=== PATIENT | female | born 1990 | race African-American/Black ===

== ENCOUNTER 2017-11-06 16:42 | Emergency (ER) | payer OTHER ==
[~2017-11-06] VITALS: Ht 175.3 cm; Wt 81.7 kg
[~2017-11-06 16:42] MED LIST: DOXYCYCLINE HY100 MG PO; METRONIDAZOLE500 MG PO; NORCO 5-325 TA1 EACH PO; PRENATAL TABLE1 EAC1 PO; SERTRALINE HCL25 MG PO
[2017-11-06] MEDS ORDERED: FLAGYL500 MG PO (19:19)
== END 2017-11-06 19:31 | disposition home or self-care (01) ==
LOC: ED 16:42
DX: N76.0 Acute vaginitis (principal); F17.200 Nicotine dependence, unspecified, uncomplicated; Z79.899 Other long term (current) drug therapy
CPT/HCPCS: 81001; 84703; 87210; 96372; 99283; J0696

== ENCOUNTER 2018-01-12 01:39 | Emergency (ER) | payer OTHER ==
[~2018-01-12] VITALS: Ht 175.3 cm; Wt 81.7 kg
[~2018-01-12 01:39] MED LIST changes: +FLAGYL500 MG PO
[2018-01-12] MEDS ORDERED: FLAGYL500 MG PO (03:11)
== END 2018-01-12 03:51 | disposition home or self-care (01) ==
LOC: ED 01:39
DX: N76.0 Acute vaginitis (principal); B96.89 Other specified bacterial agents as the cause of diseases classified elsewhere; F17.200 Nicotine dependence, unspecified, uncomplicated
CPT/HCPCS: 87210; 87491; 87591; 99284

== ENCOUNTER 2018-02-10 19:16 | Emergency (ER) | payer OTHER ==
[~2018-02-10] VITALS: Ht 175.3 cm; Wt 78.5 kg
== END 2018-02-10 22:31 | disposition home or self-care (01) ==
LOC: ED 19:16
DX: O99.89 Other specified diseases and conditions complicating pregnancy, childbirth and the puerperium (principal); R10.32 Left lower quadrant pain; O99.331 Smoking (tobacco) complicating pregnancy, first trimester; F17.200 Nicotine dependence, unspecified, uncomplicated; Z79.899 Other long term (current) drug therapy
CPT/HCPCS: 80053; 81001; 84702; 84703; 85025; 99283

== ENCOUNTER 2018-04-06 15:04 | Emergency (ER) | payer OTHER ==
[~2018-04-06] VITALS: Ht 175.3 cm; Wt 77.1 kg
[2018-04-06] MEDS ORDERED: KEFLEX500 MG PO (16:13)
== END 2018-04-06 16:23 | disposition home or self-care (01) ==
LOC: ED 15:04
DX: N39.0 Urinary tract infection, site not specified (principal); F17.200 Nicotine dependence, unspecified, uncomplicated
CPT/HCPCS: 81001; 87077; 87088; 87186; 99283

== ENCOUNTER 2018-05-15 16:48 | Emergency (ER) | payer OTHER ==
[~2018-05-15] VITALS: Ht 175.3 cm; Wt 77.1 kg
[~2018-05-15 16:48] MED LIST changes: +KEFLEX500 MG PO
[2018-05-15] MEDS ORDERED: ZOLOFT100 MG PO (16:57)
== END 2018-05-15 17:01 | disposition home or self-care (01) ==
LOC: ED 16:48
DX: R35.0 Frequency of micturition (principal); R39.15 Urgency of urination

== ENCOUNTER 2018-05-26 05:56 | Emergency (ER) | payer OTHER ==
[~2018-05-26] VITALS: Ht 175.3 cm; Wt 77.1 kg
[~2018-05-26 05:56] MED LIST changes: +ZOLOFT100 MG PO
[2018-05-26] MEDS ORDERED: DOXYCYCLINE HY100 MG PO (07:05)
== END 2018-05-26 07:23 | disposition home or self-care (01) ==
LOC: ED 05:56
DX: N92.1 Excessive and frequent menstruation with irregular cycle (principal); F17.200 Nicotine dependence, unspecified, uncomplicated; Z79.899 Other long term (current) drug therapy
CPT/HCPCS: 81001; 84703; 99284

== ENCOUNTER 2023-02-03 08:21 | Inpatient (IN) | payer OTHER ==
[~2023-02-03] VITALS: Ht 175.3 cm; Wt 130.2 kg
--- NOTE | 2023-02-06 09:11 | NUR ---
02/06/23 0911 Nirali Wright 0901- PT ARRIVES TO [facility] ROOM #[id number]. PT REPORTS NO PAIN, NAUSEA, OR DIZZINESS. IV INFUSING WITH LR AND 20 UNITS OF PITOCIN TO THE LEFT HAND. PT SITTING UP SLIGHTLY IN BED. PT REPORTS NO DIZZINESS WITH THIS. RESP EVEN AND UNLABORED. OXYGEN SAT MID 90'S ON RA. PT'S SIGNIFICANT OTHER AT THE BEDSIDE WITH THE BABY. 0906- PT SITTING UP A LITTLE MORE IN BED. PT REPORTS NO DIZZINESS. 0908- PT PROVIDED HER GLASSES. 0911- [facility] RN AT THE BEDSIDE TO ASSIST WITH BREAST FEEDING.
--- NOTE | 2023-02-07 09:50 | PR ---
[facility] [address] [facility] [place], [place] [address] Signed PP Progress Notes Datetime Report Generated by CPErik: 02/07/2023 09:50 SUBJECTIVE: [id number] Pain: Within Normal Limits Nausea/Vomiting: Denies Vital Signs: [id number] Vital Signs: Reviewed; Within Normal Limits EXAM: Ongoing Cardiovascular: Normal Respiratory: Normal Abdomen/Uterus: Abnormal Lochia: Normal Vulva/Perineum: Not Done Breasts: Not Done CVA Tenderness: Not Done Extremities: Normal Incision: Normal Progress: Normal Exam Comments: Abdomen with active BS. Fundus firm, NT @ U-1. H/H 10.3/30.7, WBC 20.1, plat 279k IMPRESSION/PLAN/PROCEDURES: [id number] Impression: Normal Progression Other Plans: ambulate, shower Progress Notes: Doing well. Will increase activity with probable discharge tomorrow to boarder status. Signing Physician: Linette Wilson MD Copies: ~ *Electronically Signed* 02/07/23 0950 LINETTE WILSON MD PATIENT NAME: LIVVELVETRYAN AURORA PROGRESS NOTE DATE OF : 89 PHYSICIAN: LINETTE WILSON MD RPT #: [id number] REPORT IS CONFIDENTIAL AND NOT TO BE RELEASED WITHOUT AUTHORIZATION
--- NOTE | 2023-02-08 10:23 | PR ---
[facility] [address] [facility] [place], [place] [address] Signed PP Progress Notes Datetime Report Generated by CPErik: 02/08/2023 10:23 SUBJECTIVE: [id number] Pain: Within Normal Limits Nausea/Vomiting: Denies Flatus: Yes Vital Signs: [id number] Vital Signs: Reviewed; Within Normal Limits EXAM: Met Cardiovascular: Normal Respiratory: Normal Abdomen/Uterus: Abnormal Lochia: Normal Vulva/Perineum: Not Done Breasts: Not Done CVA Tenderness: Not Done Extremities: Abnormal Incision: Normal Progress: Normal Exam Comments: Abdomen with active BS. Fundus firm, NT @ U-1. Ext with 1+ edema, nontender IMPRESSION/PLAN/PROCEDURES: [id number] Impression: Normal Progression Plan: Discharge Other Plans: ambulate, shower Procedures: None Progress Notes: Doing well. I feel she is stable to be discharged to board status. Signing Physician: Chandler Wilson MD Copies: ~ *Electronically Signed* 02/08/23 1023 CHANDLER WILSON MD PATIENT NAME: CARINA CANTUA BARAK PROGRESS NOTE DATE OF : [birth year] PHYSICIAN: CHANDLER WILSON MD RPT #: [id number] REPORT IS CONFIDENTIAL AND NOT TO BE RELEASED WITHOUT AUTHORIZATION
--- NOTE | 2023-02-10 16:41 | PATH ---
[facility] [address] [facility] [place], [place] [address] Signed SPECIMEN(S): A PERITONEAL CAVITY FASCIAL MASS SPECIMEN SOURCE: A. PERITONEAL CAVITY FASCIAL MASS CLINICAL HISTORY: Mass. Repeat . FINAL PATHOLOGIC DIAGNOSIS: Peritoneal cavity fascial mass: - Taliaferro soft tissue and cyst with features consistent with endometriosis. JVR:ivana:[id number] MICROSCOPIC EXAMINATION: Histologic sections of all submitted blocks are examined by light microscopy. These findings, together with the gross examination, support the pathologic diagnosis. GROSS DESCRIPTION: The specimen, labeled and designated "Dunmeyer, peritoneal cavity fascial mass," is received in formalin and consists of portion of westfall, lobulated fatty tissue (2.2 x 1.8 x 1.4 cm) with attached ellipse of fibrous tissue (3.0 x 1.3 cm). The fibrous tissue is inked black and the remainder of the specimen is inked blue. The specimen is serially sectioned to reveal yellow-westfall, fatty to red-brown soft cut surfaces. The specimen is submitted entirely in cassette A1-A3. AC (under the direct supervision of a pathologist) The Gross Description was prepared using a voice recognition system. The report was reviewed for accuracy; however, sound-alike word errors, addition and/or deletions may occur. If there is any question about this report, please contact Client Services. PERFORMING LABORATORY: The technical component was performed by [facility], [address] [place] [id number] (CLIA# [id number]). Professional interpretation was performed by [facility], [address] [place] [id number] (CLIA#: [id number]). Diagnostician: Gal Herrmann MD Pathologist PATIENT NAME: RYAN CANTU PATHOLOGY DATE OF : 89 REPORT #: [id number] PHYSICIAN: [facility] PCP: AKANKSHA OCONNOR REPORT IS CONFIDENTIAL AND NOT TO BE RELEASED WITHOUT AUTHORIZATION [address] [address] Signed Electronically Signed 02/10/2023 Copies: ~ PATIENT NAME: RYAN CANTU [facility] DATE OF : [birth year] REPORT #: [id number] PHYSICIAN: [facility] PCP: AKANKSHA OCONNOR REPORT IS CONFIDENTIAL AND NOT TO BE RELEASED WITHOUT AUTHORIZATION
--- NOTE | 2023-02-13 21:54 | OR ---
[address] [address] Signed DATE OF OPERATION: 02/06/2023 SURGEON: Fabiola Wood DO PROCEDURES PERFORMED: 1. Repeat low transverse delivery. 2. Lysis of adhesions. 3. Excision of fascial mass. PREOPERATIVE DIAGNOSES: 1. Term . 2. History of prior . 3. Opioid dependency in remission, stable on buprenorphine. 4. Obesity POSTOPERATIVE DIAGNOSES: 1. Term . 2. History of prior . 3. Opioid dependency in remission, stable on buprenorphine. 4. Omental adhesions. 5. Fascial mass. 6. Obesity. ANESTHESIA: Spinal TAP block postoperatively. COMMISSARY HELPER: Heather Escobedo DO. ESTIMATED BLOOD LOSS: 500 mL. DRAINS: Lawrence to gravity. SPECIMENS: Fascial mass suspicious for scar endometriosis. FINDINGS: Electronically Signed By: FABIOLA WOOD DO (JD) 02/13/23 2154 PATIENT NAME: RYAN ZAIDI OPERATIVE REPORT DATE OF : [birth year] REPORT #: [id number] PHYSICIAN: FABIOLA WOOD DO (JD) PCP: AKANKSHA OCONNOR REPORT IS CONFIDENTIAL AND NOT TO BE RELEASED WITHOUT AUTHORIZATION [address] [address] Signed Delivery of viable male , 8 pounds 8 ounces with Apgars of 9 and 9 in the GABRIELLA position with no nuchal. Significant omental adhesions to the anterior abdominal wall that were lysed without difficulty. The edge of the fascial incision a chocolate appearing mass just right of midline suspicious for scar endometriosis. Otherwise normal uterus, tubes, and ovaries. COMPLICATIONS: None. INDICATION: Ms. Zaidi is a very pleasant, G5, P1 female at 39 weeks gestation, who presented to the [facility] for repeat low transverse delivery. complicated by obesity, history of prior , opioid dependency in remission, stable on buprenorphine and GBS positive. Repeat low transverse delivery was reviewed in detail and all questions were answered. Consents were signed. The patient wishes to proceed with the procedure. PROCEDURE IN DETAIL: The patient was taken to the operating room where a time-out was performed to confirm correct patient and correct procedure. Spinal anesthetic was adequately established and patient was prepped and draped in the supine position with a bump under the right hip. A Lawrence catheter was inserted. The patient received Ancef 3 g preoperatively and no heparin was indicated. Once spinal was found to be adequate, the patient was prepped and draped and a Pfannenstiel incision was made through her prior scar. Incision was carried down to the fascia which was nicked in the midline and fascial incision was extended bilaterally using curved Clemons scissors. The fascia was grasped with Kaeton's, elevated, and the underlying rectus muscles dissected off bluntly and sharply. The right inferior edge of the fascia demonstrated a mass most consistent with scar endometriosis. This was approximately 1 cm x 3 cm. This portion of the fascia was excised sharply and sent to pathology for further evaluation. Rectus muscle was then divided in the midline using blunt dissection and the peritoneum was noted to be densely adherent to the omentum. The peritoneum was found to be clear superior and this clear area was opened sharply and the omentum was then serially dissected off the anterior abdominal wall. The omentum was clamped, cut, and ligated with 2-0 chromic. Once omental adhesions were freed, no additional adhesions were noted. An Burke self retractor was placed. Lower uterine segment was identified and appeared normal. Hysterotomy was then performed using a surgical scalpel. Hysterotomy was extended bilaterally using blunt dissection. The amnion was ruptured without difficulty. Clear fluid was noted. The surgeon's hand was then placed in the uterine cavity and the vertex elevated into the abdomen and delivered with the assistance of fundal pressure. The was delivered without difficulty in the GABRIELLA position and again no nuchal cord was identified. The cord was doubly clamped and cut and the handed to Electronically Signed By: FABIOLA HECTOR) DO CARMEN 02/13/23 2154 PATIENT NAME: RYAN ZAIDI OPERATIVE REPORT DATE OF : [birth year] REPORT #: [id number] PHYSICIAN: FABIOLA WOOD) PCP: AKANKSHA OCONNOR REPORT IS CONFIDENTIAL AND NOT TO BE RELEASED WITHOUT AUTHORIZATION [address] [address] Signed waiting pediatric team for further care. Cord blood was obtained for routine analysis and the section of the cord was reserved for testing per pediatrics. The placenta was manually expressed, intact with a centrally inserted three-vessel cord. The uterine cavity which was cleared of any remaining products of conception or clot. A small amount of bleeding was noted from the left edge of the hysterotomy. The hysterotomy was then closed using 0 Monocryl in a running locked manner with excellent hemostasis noted. A second imbricating suture of 0 Monocryl was applied in a vertical manner with excellent imbrication. Small amount of oozing was noted in the midline. This was made hemostatic with a [id number] suture. The pelvis was irrigated and found to be hemostatic. ACell was applied to the lower uterine segment. The Burke self retractor was removed and the peritoneum was reapproximated using 2-0 Vicryl in a running nonlocked manner. Rectus was examined and made hemostatic with judicious use of Bovie electrocautery. The rectus was then plicated in the midline using three interrupted sutures of 0 Vicryl. ACell powder was applied to the rectus sheath. Fascia was then reapproximated using 0 Vicryl in a running nonlocked manner. Subcu was reapproximated using 3-0 Vicryl in a running nonlocked manner after excellent hemostasis was assured and irrigation was performed. The skin was then reapproximated using surgical gavin. The uterus was Crede'd for scant amount of blood and the patient was then prepped and draped for tap block per Anesthesia. Sponge, needle, and instrument count were correct x2 at the end of the procedure. Dr. Escobedo was present, participated in all portions of the procedure. DO EFRAIN [place]/DENISE /[id number] Copies: ~ Electronically Signed By: FABIOLA WOOD DO (JD) 02/13/23 2154 PATIENT NAME: RYAN ZAIDI OPERATIVE REPORT DATE OF : [birth year] REPORT #: [id number] PHYSICIAN: FABIOLA WOOD) PCP: AKANKSHA OCONNOR REPORT IS CONFIDENTIAL AND NOT TO BE RELEASED WITHOUT AUTHORIZATION
== END 2023-02-08 18:37 | disposition home or self-care (01) | DRG 787 ==
LOC: FBC 02-06 05:15
PROVIDERS: ADMIT Obstetrics & Gynecology; ATTEND Obstetrics & Gynecology
PROC: 10D00Z1 Extraction of Products of Conception, Low, Open Approach (ICD-10-PCS; principal; 2023-02-06 07:30)
DX: O34.211 Maternal care for low transverse scar from previous cesarean delivery (principal); F11.20 Opioid dependence, uncomplicated; O99.324 Drug use complicating childbirth; Z67.40 Type O blood, Rh positive; Z37.0 Single live birth; Z3A.39 39 weeks gestation of pregnancy; O99.214 Obesity complicating childbirth; O99.824 Streptococcus B carrier state complicating childbirth; Z79.899 Other long term (current) drug therapy
CPT/HCPCS: 01961; 36415; 76942; 85027; 85060; 86850; 86900; 86901; 88305; A9270; J0690; J1100; J1650; J1885; J2274; J2405; J2590; J2795; J3010; J7121

== ENCOUNTER → 2023-02-04 | Day surgery (SDC) | payer OTHER ==
--- NOTE | 2023-02-05 08:53 | NUR ---
No show for Covid test
== END ==
LOC: LAB 15:43
PROVIDERS: ATTEND Obstetrics & Gynecology
DX: Z20.822 Contact with and (suspected) exposure to COVID-19 (principal)
CPT/HCPCS: 87502; U0003